=== PATIENT | female | born 1990 | race Caucasian/White ===

== ENCOUNTER 2025-03-06 22:03 | Emergency (ER) | payer BC, SELFPAY ==
[2025-03-06 22:07] VITALS: BP 174/101
--- NOTE | 2025-03-06 23:39 | ED.GENMED ---
History of Present Illness
General
Chief Complaint: Breathing Problem
Time Seen by Provider: 03/06/25 23:38
History of Present Illness
History of Present Illness:
TIME OF INITIAL ENCOUNTER: 11:40 PM
HPI: The patient delivered 3 days ago at [place]. She has been having ongoing and worsening issues of sensation of impending doom and shortness of breath. She was seen at [place] this morning in their emergency department and had an unremarkable
CTA and normal BNP. She states that OB did briefly talk to her. She has been taking Procardia. She used to be on Zoloft and was briefly on benzos during her first but stopped taking Zoloft when she was feeling markedly improved.
EXAM:
GENERAL: Well appearing in no distress, she is hypertensive
HEENT: Moist oral mucosa
CARDIOVASCULAR: No murmurs, normal heart rate, regular rhythm, No chest wall tenderness
PULMONARY: No respiratory distress, breath sounds are clear and equal
ABDOMEN: Soft with no peritoneal signs, elevated BMI
NEUROLOGIC: Excellent strength all extremities, no coordination deficits, normal L4 reflexes
PSYCHIATRIC: Appropriate mental status, normal insight and judgement
EXTREMITIES: Nontender, no edema, moves all extremities equally
SKIN: No rash, no lesions
NUMBER AND COMPLEXITY OF PROBLEMS ADDRESSED AT THE ENCOUNTER
� Chronic conditions affecting care: PCOS, high blood pressure
� Acute Exacerbation and/or Progression of Chronic Illness: This is an acute problem
� Differential Diagnosis includes: No evidence for PE based on CTA done earlier today at [place], no evidence for peripartum cardiomyopathy with BNP of 37 on labs at [place] today. Strong suspect anxiety. Low suspicion for
peripartum/ preeclampsia/hypertension.
AMOUNT AND/OR COMPLEXITY OF DATA TO BE REVIEWED AND ANALYZED
� I performed an independent evaluation of and my interpretation is:
EKG: Sinus 93, normal axis, no acute ST abnormality, no change from 06/25/2021
CT:
X-rays:
Laboratory Studies: I reviewed the labs from [place] from earlier today
Other:
� Review of other/old records: BNP at [place] was 37, CTA negative for PE at [place] today
� Clinical information was obtained by an independent historian: I spoke to [id number] at bedside
� Prescriptions/Medications Considered but not given:
� Further testing considered but not performed: Considered clonidine at [id number]'s recommendation however the patient does not have any history of substance abuse history. Recommend to hold off on clonidine at this time
until she speaks to a behavioral health specialist.
RISK OF COMPLICATIONS AND/OR MORBIDITY OR MORTALITY OF PATIENT MANAGEMENT
� Social determinants of health affecting care: Lives at home
� Discussion with other providers:
� Escalation of care including admission/observation vs risk of discharge considered: Extensive medical workup was already performed at [place] and she did have OB involved earlier today. She had the same kind of symptoms that
she had earlier with sensation of impending doom. Her vital signs are unremarkable however she is hypertensive. I did check a manual blood pressure and was around 140/80. She is compliant with taking Procardia. 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 We decided to give short course of Ativan and I also discussed the risks of dependence.
ANY OTHER UPDATES:
Past History
Past History
ED Past Medical History: Other (PCOS)
ED Past Surgical History: None
Social History
Tobacco: Non-smoker
Alcohol: None
Drug: None
Personal:
Living: with family
Employment: Employed
Family History
Family History: Other (n/c)
Phy Exam
Physical Exam
Physical Exam:
See HPI
Course
Orders/Labs/Results
Orders:
Orders
03/06/25 22:13
Electrocardiogram (*1) Urgent
Reason for Study: Shortness of Breath
EKG- Treatment ONCE
03/07/25 00:02
Lorazepam [Ativan] 1 mg PO NOW STA
Vital Signs
Blood pressure: 140/80
Initial and Last Documented VS:
Initial Vital Signs
Temp Pulse Resp BP Pulse Ox
36.6 C 114 18 174/101 100
03/06/25 22:07 03/06/25 22:07 03/06/25 22:07 03/06/25 22:07 03/06/25 22:07
Last Documented Vital Signs
Temp Pulse Resp BP Pulse Ox
36.6 C 114 18 140/80 100
03/06/25 22:07 03/06/25 22:07 03/06/25 22:07 03/07/25 00:03 03/06/25 22:07
*Critical Care Note
Total Time (30-74mins, 75-104mins- exclusive of procedures): Not Applicable
ED Attending Note
-
Portions of this chart may have been created with voice recognition software.� Occasional wrong word or��sound alike� substitutions may have occurred due to the inherent limitations of voice recognition software.
Discharge Plan
Departure
Patient Disposition: Home (Routine Discharge)
Date of Disposition: 03/07/25
Time of Disposition: 00:04
Patient with high blood pressure during this ER visit?: Yes
Discharge Problem:
Anxiety
Instructions: Anxiety in adults - ED discharge instructions
Prescriptions:
New
lorazepam [Ativan] 1 mg tablet
1 mg PO HS PRN (Reason: anxiety) Qty: 6 0RF
No Action
multivitamin with minerals [One Daily Plus Minerals] 1 EACH tablet
1 tab PO DAILY
[facility]FA [] 1 EACH tablet
1 ea PO DAILY
Activity Restrictions/Additional Instructions:
We gave you a dose of Ativan 1 mg strength. Try to limit the use of this as it has high addiction potential if taken regularly. I reviewed your workup from [place] which showed that there is no sign of a peripartum cardiomyopathy and no sign of
blood clots. Your EKG tonight is normal. Your initial blood pressure was high but on recheck it was 140/80. I recommend that you follow-up with your OB and building dismantler. I would also recommend that you consider also talking to a behavioral
health specialist or psychiatrist as well.
Interventions
Interventions:
*Risk Screen - Suicide Last Done: 03/06/25 22:07
*General Assessment Last Done: 03/06/25 22:07
*Neglect/Abuse Screening Last Done: 03/06/25 22:07
ED- Cardiac Assessment Last Done: 03/06/25 23:03
ED- Pulmonary Assessment Last Done: 03/06/25 23:03
Discharge Date and Time
Print Language: [id number]
[2025-03-07] MEDS: ATIVAN 1 MG PO (00:19)
== END 2025-03-07 00:28 | disposition home or self-care (01) ==
LOC: EMR 22:03
PROVIDERS: EMERGENCY PHYSICIAN Emergency Medicine; FAMILY PHYSICIAN Emergency Medicine
DX: F41.9 Anxiety disorder, unspecified (principal); R06.02 Shortness of breath
CPT/HCPCS: 99283; 93005